=== PATIENT | female | born 1945 | race Caucasian/White ===

== ENCOUNTER 2016-12-01 08:43 | Outpatient (CLI) ==
[2015-02-15 12:58] VITALS: BMI 57.4
[2016-12-01 09:33] LABS: ANION GAP 14.5; BUN/CREATININE RATIO 11.97; CALCIUM 9.1 mg/dL (8.2-10.2); CREATININE 1.42 mg/dL (0.60-1.30); POTASSIUM 4.5 mmol/L (3.5-5.10)
== END 2016-12-01 08:44 | disposition home or self-care (01) ==
LOC: LAB 08:43
PROVIDERS: ATTEND Internal Medicine
DX: E11.628 Type 2 diabetes mellitus with other skin complications (principal)
CPT/HCPCS: 36415; 80048; 83036